=== PATIENT | male | born 1990 | race Caucasian/White ===

== ENCOUNTER 2016-09-20 09:54 | Emergency (ER) | payer SELFPAY | END 2016-09-20 11:16 | disposition home or self-care (01) | LOC: ER 09:54 | DX: R36.9 Urethral discharge, unspecified (principal); Z20.2 Contact with and (suspected) exposure to infections with a predominantly sexual mode of transmission | CPT/HCPCS: 96372; J0696 ==

== ENCOUNTER 2016-11-08 20:23 | Emergency (ER) | payer OTHER | END 2016-11-08 21:00 | disposition home or self-care (01) | LOC: ER 20:23 | DX: N34.1 Nonspecific urethritis (principal); F17.200 Nicotine dependence, unspecified, uncomplicated | CPT/HCPCS: 96372; J0696 ==